=== PATIENT | male | born 1950 | race Two or more races ===

== ENCOUNTER 2019-10-06 15:27 | Emergency (ER) | payer MEDICARE ==
[~2019-10-06] VITALS: Ht 175.3 cm; Wt 112.0 kg
[2019-10-06 15:42] VITALS: BP 168/90
--- NOTE | 2019-10-06 16:24 | RAD ---
Examination: KNEE LEFT 4V History: Pain, injury Comparison/Correlation: None Findings: Total of 4 images of the left knee were obtained. Slight medial compartment narrowing is present. Mild spurring about the knee noted. No fracture or bony destructive change. Small joint effusion is present. Impression: No suspicious process. Electronically signed by: Sylvester Carranza MD (10/06/2019 4:21 PM) [facility]
[2019-10-06] MEDS ORDERED: HYDR-2761 PO (16:30)
--- NOTE | 2019-10-06 16:30 | PHYS DOC ---
Past Medical History Past Medical History: No Pertinent History Past Surgical History: Other Additional Past Surgical Histo: HERNIA REPAIR, RIGHT SHOULDER Alcohol Use: Occasionally Drug Use: None Adult General Chief Complaint Chief Complaint: KNEE INJURY HPI HPI Patient is a 69 year old male who presents with states a month ago he fell and both of his knees has been having left knee pain ever since. He states that he traveled to [place] and his lungs were been for a long time and no time he wants to stand up or walks there stiff and with any movement it hurts. Rates pain 10 out of 10. States when taking Tylenol and ibuprofen. Review of Systems Review of Systems Musculoskeletal: Denies back pain or Left knee joint pain [] All other systems were reviewed and found to be within normal limits, except as documented in this note. Physical Exam Physical Exam Constitutional: Well developed, well nourished, no acute distress, non-toxic appearance. [] HENT: Normocephalic, atraumatic, bilateral external ears normal, oropharynx moist, no oral exudates, nose normal. [] Eyes: PERRLA, EOMI, conjunctiva normal, no discharge. [] Neck: Normal range of motion, no tenderness, supple, no stridor. [] Cardiovascular:Heart rate regular rhythm, no murmur [] Lungs & Thorax: Bilateral breath sounds clear to auscultation [] Abdomen: Bowel sounds normal, soft, no tenderness, no masses, no pulsatile masses. [] Skin: Warm, dry, no erythema, no rash. [] Back: No tenderness, no CVA tenderness. [] Extremities: Left anterior patella tenderness, no cyanosis, no clubbing, ROM intact but painful, no edema. [] Neurologic: Alert and oriented X 3, normal motor function, normal sensory function, no focal deficits noted. [] Psychologic: Affect normal, judgement normal, mood normal. [] Current Patient Data Vital Signs Vital Signs Date Time Temp Pulse Resp B/P (MAP) Pulse Ox O2 Delivery O2 Flow Rate FiO2 10/06/19 15:42 98.2 85 12 168/90 (116) 95 Room Air 98.2 EKG EKG [] Radiology/Procedures Radiology/Procedures [] Impressions: [facility] [address] [place] [address] IMAGING REPORT Signed PATIENT: LUIZZEINAB GUZMAN: [id number] : 1950 LOCATION: ER AGE: 69 SEX: M EXAM STATUS: REG ER ORD. PHYSICIAN: SERGO STUART APRN REASON: pain injury PROCEDURE: KNEE LEFT 4V Examination: KNEE LEFT 4V History: Pain, injury Comparison/Correlation: None Findings: Total of 4 images of the left knee were obtained. Slight medial compartment narrowing is present. Mild spurring about the knee noted. No fracture or bony destructive change. Small joint effusion is present. Impression: No suspicious process. Electronically signed by: Sylvester Sauceda MD (10/06/2019 4:21 PM) [facility] DICTATED and SIGNED BY: SYLVESTER SAUCEDA MD DATE: 10/06/191620 Course & Med Decision Making Course & Med Decision Making Ambulatory with a steady gait. No swelling of the left knee. Patient has full range of motion of the knee but it is painful. No laxity in the joint. Patient states it's stiff. It hurts worse with incomplete dictation and movement. There is tenderness to the anterior patella. No bruising or deformity is seen. No redness. Popliteal pulses strong and present. Skin pink warm and dry. Can wiggle all toes and move all extremities equally. Dragon Disclaimer Dragon Disclaimer This electronic medical record was generated, in whole or in part, using a voice recognition dictation system. Departure Departure Impression: Primary Impression: Knee pain, left Disposition: 01 HOME, SELF-CARE Condition: STABLE Referrals: UNKNOWN PCP NAME (PCP) Patient Instructions: Arthritis, Nonspecific, Knee Pain, [id number] Additional Instructions: Follow up with Orthopedics. Take medication as prescribed. Scripts Hydrocodone Bit/Acetaminophen (HYDROCODONE-APAP 5-325 ) 1 Tab Tablet 1 TAB PO PRN Q6HRS PRN for PAIN, #10 TAB 0 Refills Prov: MEME CA APRN 10/06/19 Problem Qualifiers Primary Impression: Knee pain, left Chronicity: acute Qualified Codes: M25.562 - Pain in left knee MEME CA APRN Oct 06, 2019 16:30
== END 2019-10-06 16:35 | disposition home or self-care (01) ==
LOC: ER 15:27
DX: M25.562 Pain in left knee (principal)
CPT/HCPCS: 73564; 99284